=== PATIENT | male | born 1960 | race Caucasian/White ===

== ENCOUNTER 2018-07-27 20:40 | Inpatient (IN) ==
[2018-07-27] MEDS ORDERED: Haloperidol Lactate 5 MG/ML VIAL IM PRN (20:58)
[2018-07-27] MEDS ORDERED: MOM Conc 10 ML UD.LIQ PO PRN (20:58)
[2018-07-27] MEDS ORDERED: Mag Hydrox/Al Hydrox/Simeth 30 ML UDC PO PRN (20:58)
[2018-07-27] MEDS ORDERED: *HR* LORazepam 1 MG TABLET PO PRN (20:58)
[2018-07-27] MEDS ORDERED: *HR* LORazepam 2 MG/ML VIAL IM PRN (20:58)
[2018-07-27] MEDS ORDERED: hydrOXYzine pamoate 25 MG CAPSULE PO PRN (20:58)
[2018-07-27] MEDS: Gabapentin 300 MG CAPSULE PO SCH (23:29)
[2018-07-27] MEDS ORDERED: *HR* Metformin 500 MG TABLET PO STA (23:36)
[2018-07-27] MEDS: traZODone 50 MG TABLET PO PRN (23:51)
[2018-07-28] MEDS: Doxycycline 100 MG CAPSULE PO SCH (08:42)
[2018-07-28] MEDS: *HR* Metformin 500 MG TABLET PO SCH ×2 (08:42→16:59)
--- NOTE | 2018-07-28 16:40 | Psychiatry History & Physical ---
Date of Encounter: 07/29/18 Time of Encounter: 15:40 History of Present Illness Patient Stated Chief Complaint: "I'm good....well rested" Medicare Admission Attestation: For traditional Medicare patients the provided hospital inpatient services are reasonable and necessary and in the case of services not specified as inpatient-only under 42 CFR 419.22 (n), that they are appropriately provided as inpatient services in accordance 42 CFR 412.3. For Critical Access Hospital the patient may reasonably be expected to be discharged or transferred to a hospital within 96 hours after admission to the Critical Access Hospital. Admitted From: Intrahospital Transfer Plans for Post Hospital Care: Home History of Present Illness: Mr. Loza is a 57 year old male who was admitted to 1A psychiatric unit after being medically cleared from the hospital floor. Patient tells me today that "I am good.... well rested". He describes having a lot of stressor recently and making a very impulsive and rash action after his told him last Friday night that she loved him, but did not feel in love with him. He states that is when he took "a handful of Flexeril's." He describes he has been stressed at work. 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 He also has chronic medical issues with his back and shoulder that cause some difficulty but states they are manageable. He also has diabetes which has caused some problems with having erectile dysfunction. He states that he is able to masturbate occasionally, but has not been sexually active with his for years. He states that his 's acknowledgment that she loves him but is not in love with him does not mean that getting a divorce. They have talked and are going to work on the relationship to see if they can repair the issues and work through it. He states that he wants to spend more time going back to caodaism, thinking this will help also. He does not endorse feeling hopeless and helpless. He still likes to do activities like golf with his grandson and other enjoyable things in life. He likes to cook. He is eating okay, sleeping okay and he is future oriented. He does not feel sad all the time. He might have low energy at times with the diabetes, but overall does not feel consistently depressed nor anxious. He has no acknowledgement of any history of psychiatric problems in the past. No history of suicidal homicidal ideation. No auditory or visual hallucinations. No signs or symptoms of psychosis or delusional thought. He reiterates this is just "an irrational reaction I had enough." He states it is not something he would ever do again, nor does he want to . He was started on a low-dose antidepressant by the previous psychiatrist that admitted him. He denies any adverse side effects of it. He is requesting to be discharged soon. His is supportive of him and works in mental health he just days referrals because he wants to start outpatient therapy and marriage counseling. Past Med Surg Social Fam HX - Past Medical History Source: patient Medical history: arthritis, diabetes - Past Psychiatric History Psychiatric history: Reports: no psych history Family psychiatric history: No Family History of Suicide: None - Past Surgical History Surgical History: orthopedic, other (shoulder and back surgeries) - Social History Smoking Status: Never smoker Smokeless Tobacco Status: No Alcohol use: rarely Drug use: none Occupational status: employed ([employer] is shutting down in [place], will need to commute 1.25 hours now to work.) Current living situation: Home - Independent, With Family Activity Level: Independent ambulation Recent Out of Country Travel Within the Last 8 Weeks: No Exposure or Possible Exposure to Illness During Travel: No Additional social history: Having marital issues with his and they are going to work on couples counseling. - Family History Mother Hx Family Cancer: Yes (Colon Cancer) Hx Family Endocrine Disorder: Yes (DM) Father Hx Family Cancer: Yes (Brain tumor) Medications & Allergies Doxycycline Hyclate 100 mg PO DAILY 07/27/18 [History] Gabapentin [Neurontin] 300 mg PO HS 07/27/18 [History] Ibuprofen [Advil] 200 mg PO Q8H PRN 07/27/18 [History] metFORMIN [Glucophage] 1,250 mg PO BID 07/27/18 [History] Allergy/AdvReac Type Severity Reaction Status Date / Time shellfish derived Allergy Swelling Verified 05/31/15 16:49 of Lip/Tongue/Throat Review of Systems Musculoskeletal: Reports: back pain, joint pain Endocrine: Reports: other (diabetes) Exam - HEENT Head exam IM: Present: atraumatic Eye exam IM: Present: EOMI, normal appearance - Neurological Neurological exam: Present: alert - Constitutional Vitals: Temp Pulse Resp BP Pulse Ox 97.8 F 100 18 130/85 98 07/28/18 09:00 07/28/18 09:00 07/28/18 09:00 07/28/18 09:00 07/28/18 09:00 General appearance: age & developmentally appropriate, well-groomed, well-nourished - Musculoskeletal Gait: normal Station: other Strength & Tone: normal for patient - Psychiatric Patient Orientation: Yes Person, Yes Time, Yes Place, Yes Circumstance Level of alertness: Alert Behavior: anxious (mildly) Psychomotor activity: Normal Eye Contact: Maintains Eye Contact Mood Description: Depressed (mildly) Affect description: congruent with mood Speech Volume: Normal Speech pattern: normal rate, normal rhythm, normal tone, fluent, spontaneous Language & Vocabulary: consistent with education Thought Process: Intact, Logical, Linear, Goal Oriented Thought Content: Yes Intact Attention Span Ability: Capable of Focused Attention Memory Description: Grossly Intact Patient Reliability: Reliable Historian Fund of knowledge: Yes average Intelligence Estimate: Average Judgment: Fair Insight: Partial (improved) Results - Labs Labs: Laboratory Last Values POC Glucose 211 mg/dL (70-99) H 07/28/18 08:40 Assessment and Plan (1) Depression Current visit: Yes Status: Acute Plan: Admit inpatient for safety and stabilization, Close observation, Encourage participation in unit milieu, Group Therapy, Monitor sleep, Monitor appetite Risks, benefits, side effects, alternatives discussed w/pt: Yes (Taking trial of Zoloft 50 mg ) Patient agreeable to treatment: Yes Estimated Length of Stay (Days): 3
[2018-07-28] MEDS: Ibuprofen 400 MG TABLET PO PRN (20:23)
[2018-07-28] MEDS: Gabapentin 300 MG CAPSULE PO SCH (20:23)
[2018-07-28] MEDS: traZODone 50 MG TABLET PO PRN (20:23)
[2018-07-29] MEDS: *HR* Metformin 500 MG TABLET PO SCH ×2 (09:43→17:04)
[2018-07-29] MEDS: Doxycycline 100 MG CAPSULE PO SCH (09:43)
[2018-07-29 09:57] VITALS: BP 120/81
--- NOTE | 2018-07-29 11:00 | Discharge Summary ---
Date of Encounter: 07/29/18 Time of Encounter: 10:50 Diagnosis - Discharge Diagnosis (1) Depression Status: Acute Medications - Discharge Medications Prescriptions: traZODone [TraZODone] 50 mg PO HS PRN 30 Days #20 tablet PRN Reason: Insomnia Doxycycline Hyclate 100 mg PO DAILY 07/27/18 [History] Gabapentin [Neurontin] 300 mg PO HS 07/27/18 [History] Ibuprofen [Advil] 200 mg PO Q8H PRN 07/27/18 [History] metFORMIN [Glucophage] 1,250 mg PO BID 07/27/18 [History] traZODone [TraZODone] 50 mg PO HS PRN 30 Days #20 tablet 07/29/18 [Rx] Allergy/AdvReac Type Severity Reaction Status Date / Time shellfish derived Allergy Swelling Verified 05/31/15 16:49 of Lip/Tongue/Throat Provider Date of admission: 07/27/18 20:40 Primary care physician: PCP NONE Psychiatry Exam - Constitutional Vitals: Temp Pulse Resp BP Pulse Ox 98.1 F 92 16 120/81 99 07/29/18 09:00 07/29/18 09:00 07/29/18 09:00 07/29/18 09:00 07/29/18 09:00 General appearance: age & developmentally appropriate - Musculoskeletal Gait: normal Station: other Strength & Tone: normal for patient - Psychiatric Patient Orientation: Yes Person, Yes Time, Yes Place, Yes Circumstance Level of alertness: Alert Behavior: anxious (mildly) Psychomotor activity: Normal Eye Contact: Maintains Eye Contact Mood Description: Anxious (mildly) Affect description: congruent with mood Speech Volume: Normal Speech pattern: normal rate, normal rhythm, normal tone, fluent Language & Vocabulary: consistent with education Thought Process: Intact, Logical, Linear, Goal Oriented Thought Content: Yes Intact Attention Span Ability: Capable of Focused Attention Memory Description: Grossly Intact Patient Reliability: Reliable Historian Fund of knowledge: Yes average Intelligence Estimate: Average Judgment: Good Insight: Full Hospital Course Hospital course: Mr. Loza is a 57 year old male Does patient wish to continue nicotine replacement upon disc: No (non smoker) - Time Spent with Patient Total time spent providing and/or coordinating discharge services: 25 min Less than 30 minutes Assessment and Plan - Patient/Caregiver Discharge Instructions Activity: resume usual activities as tolerated Diet: regular diet - Follow up Plan Follow up with: [facility] [Outside] - 08/05/18 3:00 pm (First time appointment scheduled with Rao Minor CNP. Please bring your ID and insurance information to this appointment. ) Functional capacity at discharge: independent ambulation Overall status at discharge: Stable Disposition: Home, Self-Care Quality - Multiple Antipsychotics Patient discharged on 2 or more antipsychotic medications: No Procedures - Procedures Procedures: Crisis Stabilization, Supportive Therapy, Group Therapy, Psychoeducational Therapy
[2018-07-29] MEDS: Ibuprofen 400 MG TABLET PO PRN (17:04)
== END 2018-07-29 17:45 | disposition home or self-care (01) | DRG 881 ==
LOC: 1ANU 20:40 → SUATTDRO 20:40
PROVIDERS: ADMIT General Practice; ATTEND Psychiatry & Neurology Psychiatry